=== PATIENT | female | born 2000 | race Caucasian/White ===

== ENCOUNTER 2025-03-02 12:21 | Outpatient (CLI) | payer MEDICAID, SELFPAY ==
--- NOTE | 2025-03-02 12:15 | CRLHL7_ITS ---
For Patients: As a result of the Cures Act, medical imaging exams and procedure reports are released immediately into your electronic medical record. You may view this report before your referring provider. If you have questions, please contact your health care provider. OB ULTRASOUND INDICATION: Dating and viability. TECHNIQUE: Real time grayscale imaging of the fetus was performed. Transvaginal. Transvaginal imaging performed to better demonstrate the endometrium and ovaries. LMP: 01/03/2025. NAT by LMP: 10/10/2025. GA: 8 w, 2 d. CRL: 0.6 cm. 6 w 3 d. NAT: 10/23/2025. FHR: 124 BPM. Gestational sac: 2.0 cm. Appears within normal limits. Yolk sac: 1.6 mm. Appears within normal limits. Right ovary: 4.0 x 2.5 x 3.0 cm. CL. Left ovary: N/V. IMPRESSION: Single living intrauterine measures 6 weeks 3 days with sonographic 10/23/2025. Charles Larry M.D. Diagnostic Radiologist [email or web address] espinal/Dictated by: Charles Larry MD @ 03/03/2025 12:28:00 PM (Electronically Signed)
== END 2025-03-02 12:22 | disposition home or self-care (01) ==
LOC: US 12:22
PROVIDERS: Visit Provider Advanced Practice Midwife
DX: Z34.91 Encounter for supervision of normal pregnancy, unspecified, first trimester (principal); Z3A.08 8 weeks gestation of pregnancy
CPT/HCPCS: 76817; 83021; 86592; 86703; 86704; 86706; 86762; 86787; 86803; 86850; 86900; 86901; 87086; 87340

== ENCOUNTER 2025-05-03 11:15 | Outpatient (CLI) | payer MEDICAID, SELFPAY | END 2025-05-03 11:16 | disposition home or self-care (01) | LOC: LKVREF 11:17 | PROVIDERS: Visit Provider Advanced Practice Midwife | DX: O09.91 Supervision of high risk pregnancy, unspecified, first trimester (principal) | CPT/HCPCS: 81511 ==